=== PATIENT | male | born 1965 | race Two or more races ===

== ENCOUNTER 2019-03-30 05:46 | Inpatient (IN) | payer MEDICARE, OTHER | END 2019-04-01 17:18 | disposition still patient (30) | LOC: ER 05:46 → ICU CENTRL 11:05 → DOU IN ICU 12:15 | PROC: 4A023N7 Measurement of Cardiac Sampling and Pressure, Left Heart, Percutaneous Approach (ICD-10-PCS; principal; ~2019-03-30) | PROC: B2111ZZ Fluoroscopy of Multiple Coronary Arteries using Low Osmolar Contrast (ICD-10-PCS; ~2019-03-30) | PROC: B2151ZZ Fluoroscopy of Left Heart using Low Osmolar Contrast (ICD-10-PCS; ~2019-03-30) | DX: I21.4 Non-ST elevation (NSTEMI) myocardial infarction (principal); N18.6 End stage renal disease; I50.43 Acute on chronic combined systolic (congestive) and diastolic (congestive) heart failure; I13.2 Hypertensive heart and chronic kidney disease with heart failure and with stage 5 chronic kidney disease, or end stage renal disease ==